=== PATIENT | male | born 2000 | race Two or more races ===

== ENCOUNTER 2024-02-29 21:23 | Emergency (ER) | payer MEDICAID, OTHER ==
[~2024-02-29] VITALS: Ht 175.3 cm; Wt 77.3 kg
[2024-03-01] MEDS ORDERED: IBUP-1456 PO (00:40)
[2024-03-01] MEDS ORDERED: CYCL-837 PO (00:40)
[2024-03-01 01:46] VITALS: BP 112/78; PULSE 76; RESP 18; TEMP 98; O2SAT 100
== END 2024-03-01 01:48 | disposition home or self-care (01) ==
LOC: ER 21:23
DX: S16.1XXA Strain of muscle, fascia and tendon at neck level, initial encounter (principal); S46.812A Strain of other muscles, fascia and tendons at shoulder and upper arm level, left arm, initial encounter; S39.012A Strain of muscle, fascia and tendon of lower back, initial encounter; Z98.890 Other specified postprocedural states; V89.2XXA Person injured in unspecified motor-vehicle accident, traffic, initial encounter; Y93.I9 Activity, other involving external motion; Y92.89 Other specified places as the place of occurrence of the external cause; Y99.8 Other external cause status